=== PATIENT | male | born 1945 | race Caucasian/White ===

== ENCOUNTER 2016-02-26 12:49 | Emergency (ER) | payer MEDICARE, OTHER ==
[~2016-02-26] VITALS: Ht 172.7 cm; Wt 66.0 kg
--- NOTE | 2016-02-26 13:24 | NUR ---
Dr. Gómez examines patient. Pt family members also in room at this time.
[2016-02-26] MEDS ORDERED: ASPIRIN 81 MG CHEW (CHILDREN'S ASA) PO ONE (13:35)
[2016-02-26] MEDS ORDERED: SODIUM CHLORIDE FLUSH 3 ML SYR IV PRN (13:35)
[2016-02-26] MEDS ORDERED: SODIUM CHLORIDE FLUSH 10 ML SYR IV PRN (13:35)
--- NOTE | 2016-02-26 13:36 | NUR ---
Dr. Gómez has given verbal consent for [facility] to complete CT on Med-Surg patient prior to doing the CXR that he has ordered on this ED pt.
[2016-02-26 13:40] LABS: ALBUMIN 5.2 g/dL (3.4-5.0); ALKALINE PHOSPHATASE 94 U/L (38-126); BUN/CREATININE RATIO 22 (10-20); CALCULATED IONIZED CALCIUM 3.9 mg/dL (3.8-4.6); MEAN CORPUSCULAR HEMOGLOBIN 31.2 PG (26.0-34.0); MEAN CORPUSCULAR HGB CONC 34.8 g/dL (31.0-37.0); MEAN CORPUSCULAR VOLUME 90 FL (80-100); MEAN PLATELET VOLUME 9.5 FL (6.0-9.5); PLATELET COUNT 272 10^3uL (150-450); TOTAL PROTEIN 8.8 g/dL (6.4-8.5); WHITE BLOOD COUNT 8.45 10^3uL (4.0-11.0)
[2016-02-26 13:50] LABS: BAND NEUTROPHILS % 0 % (0-6); EOSINOPHILS % 6 % (0-4); LYMPHOCYTES # 2.7 #; MONOCYTES # 0.9 #; MONOCYTES % 11 % (3-11); RBC MORPH NORMAL (NORMAL); SEGMENTED NEUTROPHILS % 41 % (51-67); TOTAL CELLS COUNTED 100
[2016-02-26 14:30] VITALS: BP 104/77
== END 2016-02-26 14:34 | disposition home or self-care (01) ==
LOC: EDUNIT# 12:49 → ED 12:51
DX: R07.89 Other chest pain (principal)
CPT/HCPCS: 36415; 71010; 80053; 84484; 85025; 85379; 85610; 93005; 93010; 99284; 99285

== ENCOUNTER → 2016-03-07 | Outpatient (CLI) | payer MEDICARE, OTHER | LOC: RT 06:56 | PROVIDERS: ATTEND Family Medicine | DX: R07.2 Precordial pain (principal) | CPT/HCPCS: 93017 ==